=== PATIENT | male | born 1940 | race Caucasian/White ===

== ENCOUNTER 2018-07-24 20:00 | Inpatient (IN) | payer OTHER, MEDICARE ==
[~2018-07-24] VITALS: Ht 180.3 cm; Wt 83.9 kg
[2018-07-24 20:02] VITALS: BP_SYST 140
--- NOTE | 2018-07-24 20:02 | NUR ---
Patient to ER bed 8 to gown for evaluation. Side rails up.
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
--- NOTE | 2018-07-24 20:11 | NUR ---
JILLIAN Suresh at bedside examining patient.
[2018-07-24] MEDS ORDERED: NACL 0.9% 1,000 ML IV ONE ×2 (20:30→22:00)
[2018-07-24] MEDS ORDERED: KETOROLAC TROMETHAMINE 15 MG VIAL IVP ONE (20:30)
[2018-07-24] MEDS ORDERED: IPRATROPIUM/ALBUTEROL SULFATE 3 ML AMPUL.NEB INH ONE (20:30)
[2018-07-24] MEDS ORDERED: ACETAMINOPHEN 500 MG TABLET PO ONE (20:30)
[2018-07-24 20:54] LABS: BASOPHILS # (AUTO) 0.1 K/uL (0.0-0.2); BASOPHILS % (AUTO) 1.7 % (0.0-2.0); HEMATOCRIT 42.1 % (36-54); HEMOGLOBIN 14.1 g/dL (14.0-18.0); LYMPHOCYTES # (AUTO) 0.8 K/uL (1.0-5.5); LYMPHOCYTES % (AUTO) 9.3 % (20.5-51.5); MEAN CORPUSCULAR HEMOGLOBIN 33 pg (27-31); MEAN CORPUSCULAR HGB CONC 34 % (32-36); MEAN CORPUSCULAR VOLUME 98 fL (79.0-98.0); MONOCYTES # (AUTO) 1.1 K/uL (0.0-1.0); MONOCYTES % (AUTO) 12.1 % (1.7-9.3); NEUTROPHILS # (AUTO) 6.7 K/uL (1.8-7.7); NEUTROPHILS % (AUTO) 76.9 % (40.0-70.0); PLATELET COUNT (AUTO) 134 K/uL (130-430); RED BLOOD CELL COUNT(AUTO) 4.32 MIL/uL (4.2-6.2); RED CELL DISTRIBUTION WIDTH 14.1 % (9.0-15.0); WHITE BLOOD COUNT (AUTO) 8.7 K/uL (4.8-10.8)
--- NOTE | 2018-07-24 20:58 | NUR ---
chp at bedside
[2018-07-24 21:16] LABS: ANION GAP 9 (5-15); CHLORIDE 97 mmol/L (98-107); CREATININE 0.99 mg/dL (0.55-1.30); GLUCOSE 122 mg/dL (70-99); POTASSIUM 4.2 mmol/L (3.5-5.1); SODIUM SERUM 128 mmol/L (136-145); UREA NITROGEN, BLOOD 14 mg/dL (8-21)
[2018-07-24 21:22] LABS: ALANINE AMINOTRANSFERASE 26 U/L (12-78); ALBUMIN 3.5 g/dL (3.4-4.8); ASPARTATE AMINOTRANSFERASE 33 U/L (10-37); TOTAL BILIRUBIN 2.2 mg/dL (0.0-1.0)
[2018-07-24 21:42] LABS: BILIRUBIN,URINE NEGATIVE (NEGATIVE); BLOOD, URINE 1+ (NEGATIVE); CLARITY/URINE HAZY (CLEAR); COLOR,URINE YELLOW (YELLOW); GLUCOSE,URINE NEGATIVE (NEGATIVE); KETONES,URINE TRACE (NEGATIVE); LEUKOCYTE ESTERASE ,URINE TRACE (NEGATIVE); NITRITE, URINE POSITIVE (NEGATIVE); PROTEIN URINE 2+ (NEGATIVE)
--- NOTE | 2018-07-24 21:48 | NUR ---
Walked with patient approximately 180 ft. Pt with baseline dizziness prior to arrival stated to have had for several days, continues to be present. Pt ambulates well with some evidence of dizziness while ambulating. Denies increased dizziness or SOB before, during or after ambulating.
[2018-07-24 21:55] LABS: UROBILINOGEN,URINE >=8 (0.2-1.0)
[2018-07-24 21:58] LABS: BACTERIA,URINE MANY /HPF (None Seen); MUCUS,URINE None Seen /LPF (None Seen); URINE AMORPHOUS PHOSPHATES 2+ /HPF (None Seen)
--- NOTE | 2018-07-24 21:58 | NUR ---
ROAD TEST: PATIENT UNABLE TO WALK IN STEADY, STRAIGHT LINE. REPORTS DIZZINESS. MADE AWARE.
[2018-07-24] MEDS ORDERED: cefTRIAXone 1 GM in D5W 50 ML IV ONE (22:00)
[2018-07-24] MEDS ORDERED: METH2.5T PO (22:08)
--- NOTE | 2018-07-24 22:08 | NUR ---
Medication reconciliation completed with information provided by patient. Any prior medication reconciliation on file was reviewed and corrected.
--- NOTE | 2018-07-24 22:15 | NUR ---
Patient will be admitted to care of DR HUFF. Admitted to TELEMETRY unit. Will go to [id number]. Belongings list completed. Summary report printed. Report will be given at bedside.
[2018-07-24] MEDS ORDERED: cefTRIAXone 1 GM VIAL ONE (22:16)
--- NOTE | 2018-07-24 23:14 | NUR ---
AdADMISSION NOTE Received patient from ER via [facility], received report from JACK Garber. Patient admitted with diagnosis of UTI/Sepsis/Atrial fib. Patient oriented to hospital routine, call light, toileting and safety-patient verbalized understanding.
[2018-07-24 23:15] VITALS: BP_SYST 141
[2018-07-24] MEDS: NACL 0.9% 1,000 ML IV SCH (23:54)
[2018-07-25] MEDS ORDERED: LEVOFLOXACIN 500 MG/D5W 100 ML IV SCH
[2018-07-25] MEDS ORDERED: ENOXAPARIN SODIUM 40 MG/0.4 ML SYRINGE SUBCUT SCH
[2018-07-25] MEDS ORDERED: LEVOFLOXACIN 500 MG/D5W 100 ML IV ONE (00:04)
--- NOTE | 2018-07-25 01:36 | NUR ---
Rounds: Patient is sleeping in bed making audible breath sounds, no signs or symptoms of acute distress noted. Respirations even and unlabored while on room air. Bed locked in lowest position, side rails x2 raised, bed alarm on. Safety and fall precautions in place. Will continue monitoring.
--- NOTE | 2018-07-25 03:40 | NUR ---
Rounds: Patient is in bed asleep, does not show any signs or symptoms of acute distress. Respirations even and unlabored on room air, patient makes audible breath sounds. Safety and fall precautions in place, call light is with patient. Will continue monitoring.
[2018-07-25 04:12] VITALS: BP_SYST 129
[2018-07-25 04:13] VITALS: BP_SYST 118
--- NOTE | 2018-07-25 05:32 | NUR ---
Rounds: Patient is asleep in bed making audible breath sounds. Respirations even and unlabored with normal chest rise and fall. Safety and fall precautions in place. Call light is with patient. Will continue monitoring.
--- NOTE | 2018-07-25 06:14 | NUR ---
CONSULTATION PAGED/CALLED Reason for Consultation: NEW ONSET AFIB Person Who was Notified: ZEHRA Consulting Physician: DR. LARSON Cardiac/Vascular Sonographer Specialty: CARDIOLOGY Ordering Physician: DR. HUFF
--- NOTE | 2018-07-25 06:19 | NUR ---
Closing note: Patient is asleep making audible breath sounds. Respirations even and unlabored. IV fluids infusing well to patient's left forearm, IV site patent and benign. All needs met and attended to. Call light is with patient. Safety and fall precautions in place. Will endorse care to dayshift RN.
[2018-07-25 07:06] LABS: BASOPHILS # (AUTO) 0.1 K/uL (0.0-0.2); BASOPHILS % (AUTO) 0.9 % (0.0-2.0); EOSINOPHILS % (AUTO) 0.6 % (0.0-4.0); HEMATOCRIT 41.5 % (36-54); HEMOGLOBIN 13.8 g/dL (14.0-18.0); LYMPHOCYTES % (AUTO) 12.2 % (20.5-51.5); MEAN CORPUSCULAR HEMOGLOBIN 33 pg (27-31); MEAN CORPUSCULAR HGB CONC 33 % (32-36); MEAN CORPUSCULAR VOLUME 98 fL (79.0-98.0); MONOCYTES # (AUTO) 0.9 K/uL (0.0-1.0); MONOCYTES % (AUTO) 11.6 % (1.7-9.3); NEUTROPHILS # (AUTO) 5.8 K/uL (1.8-7.7); NEUTROPHILS % (AUTO) 74.7 % (40.0-70.0); PLATELET COUNT (AUTO) 109 K/uL (130-430); RED BLOOD CELL COUNT(AUTO) 4.21 MIL/uL (4.2-6.2); RED CELL DISTRIBUTION WIDTH 14.5 % (9.0-15.0); WHITE BLOOD COUNT (AUTO) 7.8 K/uL (4.8-10.8)
[2018-07-25 07:40] LABS: ANION GAP 9 (5-15); CALCIUM 8.5 mg/dL (8.4-11.0); CHLORIDE 99 mmol/L (98-107); CREATININE 1.01 mg/dL (0.55-1.30); GLUCOSE 91 mg/dL (70-99); POTASSIUM 3.6 mmol/L (3.5-5.1); SODIUM SERUM 132 mmol/L (136-145); UREA NITROGEN, BLOOD 13 mg/dL (8-21)
[2018-07-25 07:52] LABS: ALANINE AMINOTRANSFERASE 22 U/L (12-78); ALBUMIN 3.1 g/dL (3.4-4.8); ASPARTATE AMINOTRANSFERASE 27 U/L (10-37); THYROID STIMULATING HORMONE 6.27 uIu/mL (0.36-3.74); TOTAL BILIRUBIN 1.7 mg/dL (0.0-1.0)
--- NOTE | 2018-07-25 08:00 | NUR ---
OPENING NOTE: RECEIVED REPORT FROM VERIFICATION MANAGER. PATIENT IS RESTING COMFORTABLY IN BED. NO S/S OF DISTRESS OR SOB. PATIENT IS ALERT AND ORIENTED, ABLE TO EXPRESS NEEDS, AND ASK FOR ASSISTANCE. VITAL SIGNS TAKEN AND WNL. IV IS PATENT AND INFUSING. NO NEEDS EXPRESSED AT THE TIME. URINAL EMPTIED. CALL LIGHT IN REACH, BEACH IN LOWEST POSITION, AND WILL CONTINUE TO MONITOR.
[2018-07-25] MEDS: NACL 0.9% 1,000 ML IV SCH ×2 (08:20→20:59)
[2018-07-25 08:27] VITALS: BP_SYST 147
[2018-07-25 10:17] LABS: CHOLESTEROL 90 mg/dL (<200); HDL CHOLESTEROL 36 mg/dL (>45); TRIGLYCERIDES 38 mg/dL (30-150)
--- NOTE | 2018-07-25 10:18 | NUR ---
RN ROUNDS PATIENT IS RESTING COMFORTABLY IN BED. NO S/S OF DISTRESS OR SOB. PATIENT IS ALERT AND ORIENTED. DR. LARSON IN TO SEE PATIENT. NO NEEDS EXPRESSED AT THIS TIME. CALL LIGHT IN REACH, BED IN LOWEST POSITION, AND WILL CONTINUE TO MONITOR.
[2018-07-25] MEDS ORDERED: ASPIRIN 81 MG TAB.CHEW PO ONE (10:45)
[2018-07-25 11:23] LABS: LDL CHOLESTEROL < 6 mg/dL (<100)
--- NOTE | 2018-07-25 12:00 | NUR ---
Case mgt: Met w/pt at bedside-he is independent w/[employer] he is raising his 12 yr old granddaughter for past year since of his daughter Joslyn due to breast CA. He said he was really weak/wobbly 07/24/18 prior to coming to hospital. Has no DME-His is very forgetful due to her previous strokes.Has older daughter Giana whom can assist w/driving granddaughter to school. Expressed concern over stress of being able to care for granddaughter and also financial concerns as granddaughter's dad receives the money for his daughter and offers no financial assistance to pt even though granddaughter lives with grandparents full-time. Pt appeared upset that he is in the hospital and expressed that he is needed at home. I encouraged pt to reach out to his family members and ask for their support. I explained I will ask social service director to reach out to him also for possible information for financial assistance re: granddaughter and also brought him non-medical caregiver pamphlets in the event he needs additional help at home in the future. I explained that non-medical caregivers is usually not covered by insurance but can be helpful in short-term needs.
[2018-07-25 12:05] VITALS: BP_SYST 132
--- NOTE | 2018-07-25 12:06 | NUR ---
RN ROUNDS PATIENT IS RESTING COMFORTABLY IN BED. NO S/S OF DISTRESS OR SOB. PATIENT IS AWAKE AND ALERT. NO NEEDS AT THE MOMENT. 2D ECHO WAS DONE. CALL LIGHT IN REACH, BED IN LOWEST POSITION, AND WILL CONTINUE TO MONITOR.
--- NOTE | 2018-07-25 14:20 | NUR ---
RN ROUNDS PATIENT IS RESTING COMFORTABLY IN BED. NO S/S OF DISTRESS OR SOB. NO COMPLAINTS OF PAIN OR DIZZINESS. DR. HUFF MAKING ROUNDS. CALL LIGHT IN REACH, BED IN LOWEST POSITION, AND WILL CONTINUE TO MONITOR.
[2018-07-25] MEDS ORDERED: MULTIVITS,CA,MINERALS/IRON/FA 1 TABLET PO ONE (15:00)
[2018-07-25] MEDS ORDERED: NEPHROVITE, (FOLIC ACID/VITAMIN B COMP W-C 1 TAB) PO ONE (15:00)
--- NOTE | 2018-07-25 15:01 | NUR ---
RADIOLOGY PATIENT TAKEN BY WHEELCHAIR FOR XRAY
--- NOTE | 2018-07-25 16:00 | NUR ---
RN ROUNDS PATIENT IS RESTING COMFORTABLY IN BED. NO S/S OF DISTRESS OR SOB. FAMILY IS AT BEDSIDE. NO NEEDS EXPRESSED. CALL LIGHT IN REACH, BED IN LOWEST POSITION, AND WILL CONTINUE TO MONITOR.
[2018-07-25 16:05] VITALS: BP_SYST 152
--- NOTE | 2018-07-25 18:24 | NUR ---
CLOSING NOTE: PATIENT IS RESTING COMFORTABLY IN BED. NO S/S OF DISTRESS OR SOB. PATIENT IS AWAKE AND ALERT. ALL NEEDS MET DURING SHIFT. IV IS PATENT AND INFUSING. CALL LIGHT IN REACH, BED IN LOWEST POSITION, AND WILL GIVE REPORT TO NIGHT NURSE.
--- NOTE | 2018-07-25 18:54 | NUR ---
CONSULTATION PAGED/CALLED Reason for Consultation: CVA Person Who was Notified: CASSANDRA Consulting Physician: HOA RESTREPO Graduate Fellow Specialty: GIOVANNY Ordering Physician: REFUGIO
--- NOTE | 2018-07-25 19:15 | NUR ---
CHANGE OF SHIFT; pt. awake, eating his dinner with at bedside and some other visitors. IV reconnected by day shift nurse with NS at 100 cc/hr. vial left forearm. denies any pain at this time, on awake overnight monitor and shows atrial fib , controlled rate. call light within reach.
[2018-07-25 20:00] VITALS: BP_SYST 151
--- NOTE | 2018-07-25 20:15 | NUR ---
NOTES: called exchange for Dr. Claire ,waiting to return the call re: pt. fever Temp 101.2.
--- NOTE | 2018-07-25 20:30 | NUR ---
NOTES; talked to Dr. Claire with orders and consult with Dr. Melton, Tylluis antonio and IV Zosyn.
[2018-07-25] MEDS ORDERED: ACETAMINOPHEN 325 MG TABLET PO PRN (20:45)
--- NOTE | 2018-07-25 20:48 | NUR ---
CONSULTATION PAGED/CALLED Reason for Consultation: FEVER/INFECTION Person Who was Notified: CASSANDRA Consulting Physician: NEMO/ DOCTOR JAMES IS [employer] DRILLER HELPER [employer] [facility] Director Specialty: ID Ordering Physician: REFUGIO
[2018-07-25] MEDS: ENOXAPARIN SODIUM 40 MG/0.4 ML SYRINGE SUBCUT SCH (20:54)
--- NOTE | 2018-07-25 21:00 | NUR ---
NOTES: cooling measures done, Tylenol po given as ordered, encouraged to drink a lot of fluids. Addendum: 07/26/18 at 0020 by Angie Medrano RN pt. also noted with occasional bouts of productive cough.
--- NOTE | 2018-07-25 22:00 | NUR ---
NOTES: continuous ice pack, rechecked temp 99.1. oral fluids taken.
--- NOTE | 2018-07-26 | NUR ---
NOTES: pt. asleep when checked. cardiac pattern remains on controlled atrial fib. IVF patent.
[2018-07-26 00:20] VITALS: BP_SYST 122
[2018-07-26] MEDS ORDERED: PIPERACILLIN/TAZOBACTAM 3.375 GM/VIAL (ZOSYN) IV ONE (00:37)
[2018-07-26] MEDS: PIPERACILLIN/TAZO 3.375/DEX-IS 50 ML IV SCH ×2 (00:45→05:16)
--- NOTE | 2018-07-26 03:04 | NUR ---
NOTES: pt. sleeping, in no acute distress, continue to monitor, bed alarm on.
--- NOTE | 2018-07-26 04:05 | NUR ---
NOTES: hourly round, pt. sleeping.
[2018-07-26] MEDS: NACL 0.9% 1,000 ML IV SCH ×2 (05:19→11:51)
--- NOTE | 2018-07-26 06:00 | NUR ---
NOTES: awakened for medication, no complaints noted.
--- NOTE | 2018-07-26 06:45 | NUR ---
CLOSING NOTES; pt. went back to sleep, IVF patent, no c/o pain nor discomfort. voided per urinal, fall precautions observed. for further care and assistance. call light within reach.
[2018-07-26 07:06] LABS: BASOPHILS % (AUTO) 0.6 % (0.0-2.0); EOSINOPHILS # (AUTO) 0.1 K/uL (0.0-0.4); EOSINOPHILS % (AUTO) 1.7 % (0.0-4.0); HEMATOCRIT 40.8 % (36-54); HEMOGLOBIN 13.3 g/dL (14.0-18.0); LYMPHOCYTES # (AUTO) 0.8 K/uL (1.0-5.5); LYMPHOCYTES % (AUTO) 13.1 % (20.5-51.5); MEAN CORPUSCULAR HEMOGLOBIN 32 pg (27-31); MEAN CORPUSCULAR HGB CONC 33 % (32-36); MEAN CORPUSCULAR VOLUME 98 fL (79.0-98.0); MONOCYTES # (AUTO) 1.1 K/uL (0.0-1.0); MONOCYTES % (AUTO) 16.9 % (1.7-9.3); NEUTROPHILS # (AUTO) 4.4 K/uL (1.8-7.7); NEUTROPHILS % (AUTO) 67.7 % (40.0-70.0); PLATELET COUNT (AUTO) 118 K/uL (130-430); RED BLOOD CELL COUNT(AUTO) 4.15 MIL/uL (4.2-6.2); RED CELL DISTRIBUTION WIDTH 14.3 % (9.0-15.0); WHITE BLOOD COUNT (AUTO) 6.4 K/uL (4.8-10.8)
--- NOTE | 2018-07-26 07:20 | NUR ---
endorsed pt. to incoming shift with nurse
[2018-07-26 07:25] LABS: ALANINE AMINOTRANSFERASE 33 U/L (12-78); ALBUMIN 2.9 g/dL (3.4-4.8); ANION GAP 6 (5-15); ASPARTATE AMINOTRANSFERASE 37 U/L (10-37); CALCIUM 8.6 mg/dL (8.4-11.0); CHLORIDE 103 mmol/L (98-107); CREATININE 0.99 mg/dL (0.55-1.30); FREE T4 (FREE THYROXINE) 0.6 ng/dL (0.6-1.6); GLUCOSE 85 mg/dL (70-99); SODIUM SERUM 135 mmol/L (136-145); THYROID STIMULATING HORMONE 4.47 uIu/mL (0.34-4.82); TOTAL BILIRUBIN 1.5 mg/dL (0.0-1.0); UREA NITROGEN, BLOOD 11 mg/dL (8-21)
--- NOTE | 2018-07-26 07:57 | NUR ---
initial notes rec patient awake alert with ivf infusing well on the l forearm. no infiltration noted. seen by dr tejada at bedside. resp easy and unlabored. no sob noted. call light within reached and knows when to call for assistance. educated re fall/safety. will continue to monitor patient.
[2018-07-26 08:00] VITALS: BP_SYST 134
--- NOTE | 2018-07-26 08:11 | NUR ---
Nutrition Update Warren Scale 18 noted. Pt admitted for UTI, Sepsis, Atrial fibrillation Diet: cardiac low cholesterol low fat 2gm Na diet BMI: 25.8 kg/m2 RD to follow per nutrition care standards.
[2018-07-26] MEDS: FOLIC ACID 1 MG TABLET PO SCH ×2 (09:00→09:15)
[2018-07-26] MEDS: NEPHROVITE, (FOLIC ACID/VITAMIN B COMP W-C 1 TAB) PO SCH (09:15)
[2018-07-26] MEDS: MULTIVITS,CA,MINERALS/IRON/FA 1 TABLET PO SCH (09:15)
[2018-07-26] MEDS: ASPIRIN 81 MG TAB.CHEW PO SCH (09:15)
--- NOTE | 2018-07-26 10:00 | NUR ---
rounds due meds were given and hailee well. call light within reached. no acute distress noted.
--- NOTE | 2018-07-26 12:13 | NUR ---
Dietitian Recommendations *Recommend Cardiac Low Cholesterol Low Fat diet w/ Ensure Enlive TID. Oral nutritional supplement will provide additional 1050 kcal and 60 gm protein daily. Please see Nutritional Assessment for details. PORTER, RD
[2018-07-26] MEDS: cefTRIAXone 1 GM in D5W 50 ML IV SCH (12:55)
[2018-07-26 13:02] VITALS: BP_SYST 133
--- NOTE | 2018-07-26 13:14 | NUR ---
rounds eeg was completed at bedside and is ready to pbe picked up for mri. was seen also by dr polk and with new abx in progress. no sob noted.
--- NOTE | 2018-07-26 14:01 | NUR ---
PATIENT WAS EVALUATED BY PHYSICAL THERAPY AND FOUND TO BE SAFE TO AMBULATE WITH NURSING SUPERVISION. NO NEED FOR FURTHER SKILLED PHYSICAL THERAPY AT THIS TIME. INFORMED RN.
[2018-07-26] MEDS: AZITHROMYCIN 500 MG in NS 250 ML IV SCH (14:30)
--- NOTE | 2018-07-26 16:00 | NUR ---
rounds seen by dr garcia and kanika patient. amulates at the bedside and uses the urinal. no sob noted.
[2018-07-26 18:09] VITALS: BP_SYST 132
[2018-07-26] MEDS ORDERED: ALBUTEROL SULFATE 0.083% 2.5 MG/3 ML VIAL.NEB INH PRN (18:30)
[2018-07-26 18:49] VITALS: BP_SYST 132
--- NOTE | 2018-07-26 19:00 | NUR ---
closing notes dr garcia was called pt requesting for a breathing tx and done. resting comfortably when rounds made with night nurse at bedside. no sob noted. call light within reached.
--- NOTE | 2018-07-26 19:15 | NUR ---
OPENING NOTE Patient resting on the bed. No acute distress. Respiration even and unlabored. AAO x 4. Denied of pain. Skin warm and dry to touch. IV intact to LFA, no redness, no swelling, no drainage. On NS at 100ml/hr, infusing well. Discussed the safety issue, use call light when need help, and plan of care, verbally understanding. Safety measure maintained. Bed locked in low position, side rails up, bed alarm on. Call light within reached. Will continue to monitor.
[2018-07-26 19:50] VITALS: BP_SYST 123
[2018-07-26] MEDS: ENOXAPARIN SODIUM 40 MG/0.4 ML SYRINGE SUBCUT SCH (21:23)
--- NOTE | 2018-07-26 21:25 | NUR ---
TEACHING Lovenox inj given at this time. Educated patient the indication and possible side effect, verbally understanding. Safety measure maintained. Bed locked in low position, side rails up, bed alarm on. Call light within reached. Continue to monitor.
[2018-07-26] MEDS: ALBUTEROL SULFATE 0.083% 2.5 MG/3 ML VIAL.NEB INH SCH (23:45)
--- NOTE | 2018-07-26 23:50 | NUR ---
PATIENT RECEIVING BREATHING TREATMENT AT THIS TIME.
[2018-07-27 00:54] VITALS: BP_SYST 134
[2018-07-27] MEDS: NACL 0.9% 1,000 ML IV SCH ×2 (01:14→10:43)
--- NOTE | 2018-07-27 01:35 | NUR ---
URINAL Assisted patient stand up at bedside and used urinal. No hematuria/dysuria. Assisted back to bed. No acute distress. IV intact, IVF infusing well. Safety measure maintained. Bed locked in low position, side rails up, bed alarm on. Call light within reached. Continue to monitor.
[2018-07-27] MEDS: ALBUTEROL SULFATE 0.083% 2.5 MG/3 ML VIAL.NEB INH SCH ×6 (03:00→23:10)
--- NOTE | 2018-07-27 03:23 | NUR ---
ROUND Patient resting on the bed with eyes closed. No acute distress. Respiration even and unlabored. IV intact, IVF infusing well. Safety measure maintained. Call light within reached. Bed locked in low position, side rails up, bed alarm on. Continue to monitor.
--- NOTE | 2018-07-27 05:05 | NUR ---
ROUND Patient resting on the bed with eyes closed. No acute distress. Respiration even and unlabored. IV intact, IVF infusing well. Safety measure maintained. Bed locked in low position, side rails up, bed alarm on. Call light within reached. Continue to monitor.
--- NOTE | 2018-07-27 06:48 | NUR ---
CLOSING NOTE Patient resting on the bed. No acute distress. Respiration even and unlabored. Skin warm and dry to touch. IV intact to LFA, no redness, no swelling, no drainage. On NS at 100ml/hr, infusing well. All needs met. Hourly rounding during shift. Safety measure maintained. Bed locked in low position, side rails up, bed alarm on. Call light within reached. Will endorse to morning shift nurse.
--- NOTE | 2018-07-27 08:20 | NUR ---
Rounds Alert/oriented x4 denies any discomfort able to cough out phlegm white thin oxygen saturation on room air 97%, ambulate with steady gait , denies any dysuria , encouraged to increase oral fluid intake, proper hand washing,disposing tissues waste bag provided, plan of care discussed with patient verbalized understanding.
[2018-07-27 08:29] VITALS: BP_SYST 123
[2018-07-27] MEDS: FOLIC ACID 1 MG TABLET PO SCH (09:06)
[2018-07-27] MEDS: MULTIVITS,CA,MINERALS/IRON/FA 1 TABLET PO SCH (09:06)
[2018-07-27] MEDS: NEPHROVITE, (FOLIC ACID/VITAMIN B COMP W-C 1 TAB) PO SCH (09:07)
[2018-07-27] MEDS: ASPIRIN 81 MG TAB.CHEW PO SCH (09:07)
[2018-07-27] MEDS: cefTRIAXone 1 GM in D5W 50 ML IV SCH (11:02)
[2018-07-27] MEDS: AZITHROMYCIN 500 MG in NS 250 ML IV SCH (12:08)
[2018-07-27 13:22] VITALS: BP_SYST 124
--- NOTE | 2018-07-27 13:28 | NUR ---
Rounds Tolerates po well able to expectorate thin phlegm, denies any dysuria , ambulates with steady gait.
[2018-07-27 16:17] VITALS: BP_SYST 118
--- NOTE | 2018-07-27 18:49 | NUR ---
Closing notes No significant changes in assessment, spoke to DR. Lentz possible discharge tomorrow patient aware , needs attended.
--- NOTE | 2018-07-27 19:20 | NUR ---
OPENING NOTE Patient resting on the bed and talking with family at bedside. No acute distress. Respiration even and unlabored. AAO x 4. Denied of pain. Skin warm and dry to touch. IV intact to LFA, no redness, no swelling, no drainage. On NS at 100ml/hr, infusing well. Discussed the safety issue, use call light when need help, and plan of care, verbally understanding. Safety measure maintained. Bed locked in low position, side rails up, bed alarm on. Call light within reached. Will continue to monitor.
[2018-07-27 19:50] VITALS: BP_SYST 146
[2018-07-27] MEDS: ENOXAPARIN SODIUM 40 MG/0.4 ML SYRINGE SUBCUT SCH (20:21)
--- NOTE | 2018-07-27 21:20 | NUR ---
ROUND Patient sitting on the chair at bedside and watching TV. No acute distress. Respiration even and unlabored. Safety measure maintained. Call light within reached. Continue to monitor.
[2018-07-28] VITALS: BP_SYST 166
[2018-07-28] MEDS: NACL 0.9% 1,000 ML IV SCH (01:26)
[2018-07-28] MEDS: ALBUTEROL SULFATE 0.083% 2.5 MG/3 ML VIAL.NEB INH SCH ×3 (03:00→11:00)
--- NOTE | 2018-07-28 05:27 | NUR ---
ROUND Patient resting on the bed with eyes closed. No acute distress. IV intact, IVF infusing well. Safety measure maintained. Bed locked in low position, side rails up, bed alarm on. Call light within reached. Continue to monitor.
--- NOTE | 2018-07-28 06:42 | NUR ---
CLOSING NOTE Patient resting on the bed with eyes closed. No acute distress. Respiration even and unlabored. Skin warm and dry to touch. IV intact to LFA, no redness, no swelling, no drainage. On NS at 100ml/hr, infusing well. All needs met. Hourly rounding during shift. Safety measure maintained. Bed locked in low position, side rails up, bed alarm on. Call light within reached. Will endorse to morning shift nurse.
[2018-07-28 08:02] VITALS: BP_SYST 140
--- NOTE | 2018-07-28 08:04 | NUR ---
Initial notes: Patient on bed awake, alert and oriented. Stable. I.V. access patent. Safety measures in placed. Call light within reach. Report received at bedside.
[2018-07-28] MEDS: FOLIC ACID 1 MG TABLET PO SCH (08:12)
[2018-07-28] MEDS: MULTIVITS,CA,MINERALS/IRON/FA 1 TABLET PO SCH (08:12)
[2018-07-28] MEDS: NEPHROVITE, (FOLIC ACID/VITAMIN B COMP W-C 1 TAB) PO SCH (08:13)
[2018-07-28] MEDS: ASPIRIN 81 MG TAB.CHEW PO SCH (08:13)
--- NOTE | 2018-07-28 08:16 | NUR ---
rounds: patient on bed eating his breakfast. no distress noted.
[2018-07-28 10:39] VITALS: BP_SYST 145
[2018-07-28] MEDS ORDERED: ALBU8.5H8 INH ×3 (11:17→11:21)
[2018-07-28] MEDS ORDERED: AZIT250T PO (11:23)
--- NOTE | 2018-07-28 11:58 | NUR ---
D/C Patient Patient given medication reconciliation form and D/C instructions. Exit Care provided. Patient verbalized understanding. MD discussed with patient the results and treatment provided. Ambulatory with steady gait for discharge to home. Patient in stable condition, ID band removed. IV catheter removed, intact and dressing applied, no active bleeding. Rx of Zpack and albuterol inh given. Patient educated on pain management. All belongings sent with patient.
== END 2018-07-28 11:58 | disposition home or self-care (01) | DRG 871 ==
LOC: SED 20:00 → STU 22:15
PROVIDERS: ADMIT Internal Medicine Hospice and Palliative Medicine; ATTEND Internal Medicine Hospice and Palliative Medicine
DX: A41.9 Sepsis, unspecified organism (principal); J18.9 Pneumonia, unspecified organism; N39.0 Urinary tract infection, site not specified; E87.1 Hypo-osmolality and hyponatremia; D68.59 Other primary thrombophilia; M06.9 Rheumatoid arthritis, unspecified; R00.1 Bradycardia, unspecified; I10 Essential (primary) hypertension; I27.20 Pulmonary hypertension, unspecified; B34.9 Viral infection, unspecified; N35.919 Unspecified urethral stricture, male, unspecified site; E87.8 Other disorders of electrolyte and fluid balance, not elsewhere classified; I08.1 Rheumatic disorders of both mitral and tricuspid valves; I48.2 Chronic atrial fibrillation; G62.9 Polyneuropathy, unspecified; J06.9 Acute upper respiratory infection, unspecified; S09.90XA Unspecified injury of head, initial encounter; V49.88XA Car occupant (driver) (passenger) injured in other specified transport accidents, initial encounter; Y93.89 Activity, other specified; Y92.488 Other paved roadways as the place of occurrence of the external cause; Y99.8 Other external cause status
CPT/HCPCS: 36415; 70450-TC; 70551; 71045; 71046-TC; 80053; 80061; 81000-TC; 83605; 83735-TC; 83880; 84439; 84443-TC; 84484; 85025; 86710; 86738; 87040-TC; 87086; 87186-TC; 87449; 90656; 93005; 93306; 94640; 94760; 95816; 96361; 96365; 96375; 99285; J0456; J0696; J1650; J1885; J1956; J2543; J7030; J7050; J7060; J7613; J7620